=== PATIENT | female | born 1990 | race African-American/Black ===

== ENCOUNTER 2022-07-25 17:39 | Emergency (ER) | payer OTHER ==
[~2022-07-25] VITALS: Ht 165.1 cm; Wt 64.0 kg
[2022-07-25] MEDS ORDERED: ONDANSETRON 4MG ODT PO STA (19:17)
[2022-07-25] MEDS ORDERED: CYCLOBENZAPRINE 10MG TABLET PO ONE (21:30)
[2022-07-25] MEDS ORDERED: IBUPROFEN 600MG TABLET PO ONE (21:30)
[2022-07-25] MEDS ORDERED: NAPR-1176 MT (21:31)
[2022-07-25] MEDS ORDERED: CYCL5TAB MT (21:31)
[2022-07-25 22:10] VITALS: BP 131/85
== END 2022-07-25 22:10 | disposition home or self-care (01) ==
LOC: ER 18:01
DX: S00.83XA Contusion of other part of head, initial encounter (principal); X58.XXXA Exposure to other specified factors, initial encounter; Y93.89 Activity, other specified; Y92.89 Other specified places as the place of occurrence of the external cause; Y99.8 Other external cause status
CPT/HCPCS: 70450; 72125; 81025; 99284; Q0162

== ENCOUNTER 2023-12-12 12:41 | Emergency (ER) | payer SELFPAY ==
[~2023-12-12] VITALS: Ht 165.1 cm; Wt 64.0 kg
[~2023-12-12 12:41] MED LIST: CYCL5TAB MT; NAPR-1176 MT
[2023-12-12 12:48] VITALS: TEMP 98.4; O2SAT 98
[2023-12-12] MEDS ORDERED: NAPR220C61 MT (13:55)
[2023-12-12] MEDS ORDERED: IBUPROFEN 600MG TABLET PO ONE (14:00)
[2023-12-12 14:14] VITALS: BP 149/90; PULSE 111; RESP 16
== END 2023-12-12 14:43 | disposition home or self-care (01) ==
LOC: ER 12:41
DX: S00.83XA Contusion of other part of head, initial encounter (principal); X58.XXXA Exposure to other specified factors, initial encounter; Y93.89 Activity, other specified; Y92.89 Other specified places as the place of occurrence of the external cause; Y99.8 Other external cause status
CPT/HCPCS: 81025; 99283